=== PATIENT | female | born 1970 | race Caucasian/White ===

== ENCOUNTER 2016-06-13 01:36 | Emergency (ER) | payer MEDICAID ==
[~2016-06-13] VITALS: Ht 162.6 cm; Wt 88.5 kg
[~2016-06-13 01:36] MED LIST: INSU100C SC; INSU100V23 SC
[2016-06-13 01:43] VITALS: Ht 162.6 cm; Wt 88.5 kg
--- NOTE | 2016-06-13 05:08 | RADRPT ---
PROCEDURE: Noncontrast CT Head. CLINICAL INDICATION: Pain. TECHNIQUE: Noncontrast CT of the head was obtained. The administered radiation dose was CTDI vol = 45 mGy, DLP = 720 mGy-cm. COMPARISON: No pertinent prior examinations were submitted for comparison. FINDINGS: There is mild enlargement of the ventricles and cortical sulci. There is no acute intracranial hemo rrhage or extra-axial fluid collection. There is no mass effect. No midline shift is identified. The re is no loss of cobian-white differentiation to suggest acute infarction. The orbits are within normal limits. The paranasal sinuses and mastoid air cells are without fluid. No destructive osseous lesion is identified. IMPRESSION: No acute findings. Mild diffuse parenchymal volume loss. RPTAT: HIKT .Richard Molina MD, MD Date Time Electronically viewed and signed by .Richard Molina MD, on 06/13/2016 05:08 .T/
[2016-06-13] MEDS ORDERED: IBUP-1542 PO (05:13)
[2016-06-13] MEDS ORDERED: SOD CHLORIDE 0.9% 1,000 ML IV STA (05:17)
--- NOTE | 2016-06-13 05:17 | ERD ---
ER Documentation Chief Complaint Date/Time DATE: 06/13/16 TIME: 05:14 Chief Complaint headache, right sided body pain x 3 days. no neuro deficit (AUDREY KEATING PA-C) HPI Patient is a 45-year-old female with a past medical history of diabetes who presents to the emergency department with a headache and right-sided body pain 3 days. Patient states that her headache started 3 days ago pain has been getting gradually worse. Patient states the pain is in the occipital region and radiates down her neck and into her upper back. Patient denies any neck stiffness. Patient denies sudden onset of the pain. She does report feeling nauseous. Patient denies any vomiting or loss of consciousness. Patient also states she has some pulsating pain behind her right eye. Patient states she does have some blurry vision. Patient reports right-sided body pain of her right arm and right leg. Patient denies any chest pain, shortness of breath, left arm pain, diaphoresis. Of note, patient has not been taking her insulin as prescribed due to financial difficulties. (AUDREY KEATING PA-C) ROS All systems reviewed and are negative except as per history of present illness. (AUDREY KEATING PA-C) Medications Home Meds Active Scripts Nitrofurantoin Monohyd Macrocr* (Macrobid*) 100 Mg Capsr, 100 MG PO BID for 5 Days, CAP Prov:AUDREY KEATING PA-C 06/13/16 Ibuprofen* (Motrin*) 600 Mg Tab, 600 MG PO Q6, #15 TAB Prov:AUDREY KEATING PA-C 06/13/16 Reported Medications Insulin Regular, Human* (Novolin R*) 100 U/Ml Vial, 25 UNIT SC QHS, VIAL 07/24/14 Insulin Lispro (Humalog) 100 U/Ml Cartridge, 10 UNITS SC QPM, EA 07/24/14 Insulin Lispro (Humalog) 100 U/Ml Cartridge, 15 UNITS SC NOON, EA 07/24/14 Insulin Lispro (Humalog) 100 U/Ml Cartridge, 10 UNITS SC QAM, EA 07/24/14 Allergies Allergies: Coded Allergies: No Known Allergy (Unverified , 06/13/16) PMhx/Soc History of Surgery: No Anesthesia Reaction: No Hx Neurological Disorder: No Hx Respiratory Disorders: No Hx Cardiac Disorders: No Hx Psychiatric Problems: No Hx Alcohol Use: No Hx Substance Use: No Hx Tobacco Use: No Smoking Status: Never smoker (AUDREY KEATING PA-C) Physical Exam Vitals Vital Signs Date Time Temp Pulse Resp B/P Pulse Ox O2 Delivery O2 Flow Rate FiO2 06/13/16 07:00 82 19 136/73 96 Room Air 06/13/16 06:11 99.0 78 20 139/60 100 Room Air 06/13/16 01:43 98.7 96 20 119/55 99 (ALBARO STEINER PA-C) Physical Exam GENERAL: Well-developed, well-nourished female. Appears in no acute distress. Speaking in full sentences. HEAD: Normocephalic, atraumatic. No deformities or ecchymosis. No scalp hematomas. EYE: Pupils equal, round, and reactive to light. EOMs intact. No conjunctival erythema. No eye discharge. ENT: External ear without any masses or tenderness. Auditory canals clear bilaterally. TM visualized bilaterally, non-erythematous, non-bulging. Nasal mucosa pink with no discharge. Oropharynx is pink without any tonsillar erythema or exudates. No uvula deviation. No kissing tonsils. NECK: Supple. No meningismus. Normal ROM of the neck. LUNG: Clear to auscultation bilaterally. No rhonchi, wheezing, rales or coarse breath sounds. HEART: Regular rate and rhythm. No murmurs, rubs or gallops. BACK: No midline tenderness. EXTREMITIES: Equal pulses bilaterally. No peripheral clubbing, cyanosis or edema. No unilateral leg swelling. NEUROLOGIC: Alert and oriented x3, cooperative. Mood and affect appropriate to situation. Cranial nerves II through XII are grossly intact. Normal speech. Motor exam: 5/5 strength in upper and lower extremities. Sensory exam: Sensation intact to light touch on all four extremities. Cerebellar function exam: Rapid alternating movements intact. No dysmetria on vxxerg-ao-onhd test. Steady gait. No pronator drift. Negative Brudzinski sign. Negative Kernig sign. SKIN: Normal color. Warm and dry. No rashes or lesions. (AUDREY KEATING PA-C) Result Diagram: 06/13/16 0600 06/13/16 0600 Results 24 hrs Laboratory Tests Test 06/13/16 04:21 06/13/16 05:17 06/13/16 06:00 06/13/16 07:16 Bedside Glucose 334mg/dL 243mg/dL Blood Gas Specimen Source Blood venous Arterial Blood Date Drawn 06/13/2016 5:45:36 AM Arterial Blood Gas Puncture Site VENOUS LINE Kyaw Test N/A Venous Blood pH 7.381 Venous Blood pCO2 (Temp Corrected) 36.8mmHG Venous Blood pO2 (Temp Corrected) 56.5mmHG Venous Blood HCO3 21.3mmol/L Venous Blood Oxygen Saturation 88.0mmHG Venous Blood Base Excess -3.2mmol/L Venous Blood Total Hemoglobin 15.5g/dl Venous Blood Oxyhemoglobin 87.7% Venous Blood Methemoglobin 0.3% Carboxyhemoglobin 0% Blood Gas Temperature 37.0C Blood Gas Modality ROOM AIR FiO2 21.0% Blood Gas Notified Whom AA Blood Gas Notified Time 06/13/2016 5:52:37 AM White Blood Count 9.510^3/ul Red Blood Count 4.4510^6/ul Hemoglobin 13.2g/dl Hematocrit 40.2% Mean Corpuscular Volume 90.3fl Mean Corpuscular Hemoglobin 29.7pg Mean Corpuscular Hemoglobin Concent 32.8g/dl Red Cell Distribution Width 13.2% Platelet Count 09069^3/UL Mean Platelet Volume 11.8fl Neutrophils % 51.8% Lymphocytes % 37.0% Monocytes % 7.8% Eosinophils % 2.7% Basophils % 0.4% Nucleated Red Blood Cells % 0.0/100WBC Neutrophils # 4.910^3/ul Lymphocytes # 3.510^3/ul Monocytes # 0.710^3/ul Eosinophils # 0.310^3/ul Basophils # 0.010^3/ul Nucleated Red Blood Cells # 0.010^3/ul Urine Color LT. YELLOW Urine Clarity CLEAR Urine pH 5.5 Urine Specific [place] 1.010 Urine Ketones TRACE Urine Nitrite POSITIVE Urine Bilirubin NEGATIVE Urine Urobilinogen 0.2 E.U./dL Urine Leukocyte Esterase NEGATIVE Urine Microscopic RBC NONE SEEN/HPF Urine Microscopic WBC 2-5/HPF Urine Bacteria MODERATE Urine Hemoglobin NEGATIVE Urine Glucose >=1000% Urine Total Protein NEGATIVE Sodium Level 136mmol/L Potassium Level 3.7mmol/L Chloride Level 101mmol/L Carbon Dioxide Level 22mmol/L Anion Gap 17 Blood Urea Nitrogen 12mg/dl Creatinine 0.44mg/dl Glucose Level 371mg/dl Calcium Level 8.9mg/dl Current Medications Medications (Trade) Dose Ordered Sig/[place] Route PRN Reason Start Time Stop Time Status Last Admin Dose Admin Sodium Chloride 1,000 ml @ 1,000 mls/hr Q1H STAT IV 06/13/16 05:17 06/13/16 06:16 DC 06/13/16 06:00 Sodium Chloride 1,000 ml @ 1,000 mls/hr Q1H ONCE IV 06/13/16 07:00 06/13/16 07:59 DC 06/13/16 06:39 Sodium Chloride (NS) 500 ml @ 500 mls/hr Q1H ONCE IV 06/13/16 07:00 06/13/16 07:59 DC 06/13/16 06:50 (ALBARO STEINER PA-C) Procedures/MDM ED COURSE: The patient was stable throughout ED course. I kept the patient and/or family informed of laboratory and diagnostic imaging results throughout the ED course. DIAGNOSTIC IMAGING: Read by radiologist. DIAGNOSTIC IMAGING REPORT Patient: RENY WARREN : 1970 Age: 45 Sex: F MR #: [id number] DOS: 06/13/16 0423 Ordering MD: AUDREY KEATING PA-C Location: [facility] Room/Bed: PROCEDURE: Noncontrast CT Head. CLINICAL INDICATION: Pain. TECHNIQUE: Noncontrast CT of the head was obtained. The administered radiation dose was CTDI vol = 45 mGy, DLP = 720 mGy-cm. COMPARISON: No pertinent prior examinations were submitted for comparison. FINDINGS: There is mild enlargement of the ventricles and cortical sulci. There is no acute intracranial hemorrhage or extra-axial fluid collection. There is no mass effect. No midline shift is identified. There is no loss of cobian-white differentiation to suggest acute infarction. The orbits are within normal limits. The paranasal sinuses and mastoid air cells are without fluid. No destructive osseous lesion is identified. IMPRESSION: No acute findings. Mild diffuse parenchymal volume loss. RPTAT: HIKT .Richard Jesse, MD, Date Time Electronically viewed and signed by .Richard Molina MD, MD on 06/13/2016 05:08 .T/ CC: AUDREY KEATING PA-C MEDICATIONS GIVEN: IV fluids Patient tolerated medication well with no adverse reactions. Patient reported improvement in pain. MEDICAL DECISION MAKING: This is a 45-year-old female who presents with a headache and right-sided body pain 3 days. Vital signs were reviewed. Patient was afebrile. Patient is not hypoxic. Patient stated that the headache was gradual. Patient denied any fevers , neck stiffness, visual changes or LOC. Full neurological exam was normal. Patient's Accu-Chek blood sugar was noted to be 334. CBC showed no evidence of systemic infection or severe anemia. CMP showed no evidence of electrolyte abnormalities, renal failure, or liver disease. Patient's blood sugar was noted to be 371. Patient bicarb is noted to be 22. Since pH was noted to be 7.38. UA showed no evidence of acute infection or hematuria. Urine was negative for ketones of however +nitrites. She was given 2 L of IV fluids here in the ED. I discussed this case with my supervising physician Dr. Shoemaker who advised me not to give the patient any insulin at this time. She did not show signs of DKA or HHS. CT imaging of the brain was negative for acute findings. At this time, the patient's presentation is most consistent with hyperglycemia, headache, UTI. Low suspicion for intracranial hemorrhage, meningitis, encephalitis, intracranial mass, glaucoma, sinusitis, cluster headache, pyelonephritis, nephrolithiasis. Patient was signed out to Albaro Steiner PA-C, pending IV fluids and repeat blood sugar check. Patient was stable at time of transfer of care. PRESCRIPTIONS: Ibuprofen, Macrobid Patient's random blood sugar level was elevated (>140), but appears stable without evidence of DKA or end organ failure. I had discussion with the patient about the risk of diabetes. I have advised the patient to follow up with his/her primary care physician for outpatient monitoring and treatment for elevated blood sugar levels in 2-3 days. I have instructed the patient to return to the ER for any new or worsening symptoms including chest pain, shortness of breath, headache, confusion, abdominal pain, nausea, vomiting, weakness or LOC. (AUDREY KEATING PA-C) Patient was handed off to me by physician property management assistant Danielle Keating. Have been briefed on the patient's current condition. Went to go examined the patient myself. Patient seems well and brief/gross physical exam is unremarkable. We will go ahead and monitor patient as she is last one half bolus of saline and track blood glucose. Will discharge home when blood glucose level will lowers and if patient continues to be asymptomatic and stable. Patient's blood glucose on recheck was 214. Vital signs are stable. Patient's lungs were clear and heart exam was within normal limits. We will go ahead and discharge the patient and recommend that she see her primary care provider for chronic management of her diabetes mellitus. (ALBARO STEINER PA-C) Departure Diagnosis: Primary Impression: Headache Headache type: unspecified Headache chronicity pattern: unspecified pattern Intractability: not intractable Qualified Code: R51 - Nonintractable headache, unspecified chronicity pattern, unspecified headache type Condition: Stable Patient Instructions: Self-Care for Headaches Referrals: [facility] YOU HAVE RECEIVED A MEDICAL SCREENING EXAM AND THE RESULTS INDICATE THAT YOU DO NOT HAVE A CONDITION THAT REQUIRES URGENT TREATMENT IN THE EMERGENCY DEPARTMENT. FURTHER EVALUATION AND TREATMENT OF YOUR CONDITION CAN WAIT UNTIL YOU ARE SEEN IN YOUR DOCTORS OFFICE WITHIN THE NEXT 1-2 DAYS. IT IS YOUR RESPONSIBILITY TO MAKE AN APPOINTMENT FOR FOLOW-UP CARE. IF YOU HAVE A PRIMARY DOCTOR --you should call your primary doctor and schedule an appointment IF YOU DO NOT HAVE A PRIMARY DOCTOR YOU CAN CALL OUR PHYSICIAN REFERRAL HOTLINE AT IF YOU CAN NOT AFFORD TO SEE A PHYSICIAN YOU CAN CHOSE FROM THE FOLLOWING [facility] CLINICS [facility] [address] [facility] [place]. [facility] [address] [facility] [facility] [address] [facility] [address] [facility]. [facility] [address] [facility]. [facility]. [address] [facility]. [facility] YOU HAVE RECEIVED A MEDICAL SCREENING EXAM AND THE RESULTS INDICATE THAT YOU DO NOT HAVE A CONDITION THAT REQUIRES URGENT TREATMENT IN THE EMERGENCY DEPARTMENT. FURTHER EVALUATION AND TREATMENT OF YOUR CONDITION CAN WAIT UNTIL YOU ARE SEEN IN YOUR DOCTORS OFFICE WITHIN THE NEXT 1-2 DAYS. IT IS YOUR RESPONSIBILITY TO MAKE AN APPOINTMENT FOR FOLOW-UP CARE. IF YOU HAVE A PRIMARY DOCTOR --you should call your primary doctor and schedule and appointment IF YOU DO NOT HAVE A PRIMARY DOCTOR YOU CAN CALL OUR PHYSICIAN REFERRAL HOTLINE AT . IF YOU CAN NOT AFFORD TO SEE A PHYSICIAN YOU CAN CHOSE FROM THE FOLLOWING [facility] INSTITUTIONS: [facility] [address] [place] [address] [facility] [address] [place] [address] [facility] [address] [place] [address] Additional Instructions: Llame al doctor MAANA y juan manuel geo SIL PARA DENTRO DE 1-2 LUGO.Dgale a la secretaria que nosotros le instruimos hacer esta sil.Avise o llame si hinkle condicin se empeora antes de la sil. Regresa aqui si peor o no mejor. AUDREY KEATING PA-C Jun 13, 2016 05:17 ALBARO STEINER PA-C Jun 13, 2016 07:06 [place] [address] Additional Instructions: Llame al doctor MAKULWINDER y juan manuel geo SIL PARA DENTRO DE 1-2 LUGO.Dgale a la secretaria que nosotros le instruimos hacer esta sil.Avise o llame si hinkle condicin se empeora antes de la sil. Regresa aqui si peor o no mejor. AUDREY KEATING PA-C Jun 13, 2016 05:17 ALBARO STEINER PA-C Jun 13, 2016 07:06
[2016-06-13 05:52] LABS: MODE ROOM AIR; MetHgb Venous 0.3 %; Sample Type Blood venous; Venous COHb 0 %; Venous Fraction OxyHgb 87.7 %; Venous Total Hemglobin 15.5 g/dl
[2016-06-13 06:04] LABS: ADD SCAN DIFF NO
[2016-06-13 06:17] LABS: POTASSIUM 3.7 mmol/L (3.5-5.1)
[2016-06-13 06:19] LABS: CREATININE 0.44 mg/dl (0.44-1.00)
[2016-06-13 06:20] LABS: CALCIUM 8.9 mg/dl (8.4-10.2)
[2016-06-13 06:26] LABS: BASOPHILS % 0.4 % (0.0-2.0); EOSINOPHILS # 0.3 10^3/ul (0.0-0.5); EOSINOPHILS % 2.7 % (0.0-7.0); HEMATOCRIT 40.2 % (37.0-47.0); HEMOGLOBIN 13.2 g/dl (12.0-16.0); LYMPHOCYTES # 3.5 10^3/ul (0.8-2.9); MEAN CORPUSCULAR HEMOGLOBIN 29.7 pg (29.0-33.0); MEAN CORPUSCULAR HGB CONC 32.8 g/dl (32.0-37.0); MEAN CORPUSCULAR VOLUME 90.3 fl (82.0-101.0); MEAN PLATELET VOLUME 11.8 fl (7.4-10.4); MONOCYTE # 0.7 10^3/ul (0.3-0.9); MONOCYTES % 7.8 % (0.0-11.0); NEUTROPHIL # 4.9 10^3/ul (1.6-7.5); NEUTROPHILS % 51.8 % (39.0-77.0); PLATELET COUNT 238 10^3/UL (140-415); RED BLOOD COUNT 4.45 10^6/ul (4.20-5.40); RED CELL DISTRIBUTION WIDTH 13.2 % (11.5-14.5); WHITE BLOOD COUNT 9.5 10^3/ul (4.8-10.8)
[2016-06-13 06:46] LABS: ADD UMIC YES; URINE BILIRUBIN (Dip) NEGATIVE (NEGATIVE); URINE BLOOD (Dip) NEGATIVE (NEGATIVE); URINE COLOR LT. YELLOW (YELLOW); URINE GLUCOSE (Dip) >=1000 % (NEGATIVE); URINE KETONES (Dip) TRACE (NEGATIVE); URINE LEUKOCYTE ESTERASE (Dip) NEGATIVE (NEGATIVE); URINE NITRITE (Dip) POSITIVE (NEGATIVE); URINE TOTAL PROTEIN (Dip) NEGATIVE (NEGATIVE); URINE UROBILINOGEN (Dip) 0.2 E.U./dL (0.1-1.0)
[2016-06-13] MEDS ORDERED: SOD CHLORIDE 0.9% 500 ML IV ONE (07:00)
[2016-06-13] MEDS ORDERED: SOD CHLORIDE 0.9% 1,000 ML IV ONE (07:00)
[2016-06-13] MEDS ORDERED: NITR-58 PO (07:09)
[2016-06-13 07:10] LABS: BACTERIA,URINE MODERATE; URINE RBCS NONE SEEN /HPF (0)
[2016-06-13 09:30] VITALS: BP 118/70; PULSE 78; RESP 20; TEMP 98.4
== END 2016-06-13 09:45 | disposition home or self-care (01) ==
LOC: FTE 01:36
DX: R51 Headache (principal); E11.9 Type 2 diabetes mellitus without complications; Z79.4 Long term (current) use of insulin
CPT/HCPCS: 36415; 70450; 80048; 81001; 81003; 82803; 82962; 85025; 96360; 96361; J7030; J7040; Z7502; Z7610

== ENCOUNTER 2016-08-29 12:02 | Emergency (ER) | payer MEDICAID ==
[~2016-08-29] VITALS: Ht 157.5 cm; Wt 78.0 kg
[~2016-08-29 12:02] MED LIST changes: +IBUP-1542 PO; +NITR-58 PO
[2016-08-29 12:04] VITALS: Ht 157.5 cm; Wt 78.0 kg
[2016-08-29] MEDS ORDERED: ONDANSETRON 4 MG INJ IV STA (12:35)
--- NOTE | 2016-08-29 13:28 | RADRPT ---
PROCEDURE: US Abdomen (right upper quadrant). CLINICAL INDICATION: Right upper quadrant abdomen pain. TECHNIQUE: Multiple real-time longitudinal and transverse images of the right upper quadrant of th e abdomen were acquired utilizing a curved array transducer. Images were reviewed on a high-resoluti on PACS workstation. COMPARISON: CT scan of the abdomen and pelvis dated 07/24/2014 which demonstrated fatty liver. FINDINGS: The liver is enlarged and diffusely increased in echogenicity. There is no focal hepatic lesion. Color Doppler and pulsed Doppler sonography demonstrate normal an tegrade flow in the portal vein. The gallbladder is normal with no stones or wall thickening. There is no pericholecystic fluid darell ection. The bile ducts are normal with the common bile duct measuring 3.6 mm in diameter. The pancreas is not well visualized due to overlying bowel gas. No free fluid is present. The right kidney measures 10.6 x 5.4 x 6.3 cm. There is normal echogenicity of the right kidney. There is no perinephric fluid collection. No hydronephrosis, mass, or calculus is seen. IMPRESSION: 1. Hepatomegaly. 2. Fatty metamorphosis of the liver. 3. Pancreas not well visualized. 4. Otherwise normal right upper quadrant abdomen ultrasound. RPTAT: QQ .Jarrett Nolasco MD, MD Date Time Electronically viewed and signed by .Jarrett Nolasco MD, on 08/29/2016 13:28 .R/
[2016-08-29 13:54] LABS: ADD SCAN DIFF NO
[2016-08-29 14:05] LABS: BASOPHILS % 0.6 % (0.0-2.0); EOSINOPHILS # 0.1 10^3/ul (0.0-0.5); EOSINOPHILS % 0.8 % (0.0-7.0); HEMATOCRIT 36.8 % (37.0-47.0); HEMOGLOBIN 12.3 g/dl (12.0-16.0); LYMPHOCYTES # 1.2 10^3/ul (0.8-2.9); LYMPHOCYTES % 18.5 % (15.0-51.0); MEAN CORPUSCULAR HEMOGLOBIN 29.6 pg (29.0-33.0); MEAN CORPUSCULAR HGB CONC 33.4 g/dl (32.0-37.0); MEAN CORPUSCULAR VOLUME 88.7 fl (82.0-101.0); MEAN PLATELET VOLUME 11.6 fl (7.4-10.4); MONOCYTE # 0.5 10^3/ul (0.3-0.9); MONOCYTES % 8.1 % (0.0-11.0); NEUTROPHIL # 4.8 10^3/ul (1.6-7.5); NEUTROPHILS % 71.5 % (39.0-77.0); PLATELET COUNT 208 10^3/UL (140-415); RED BLOOD COUNT 4.15 10^6/ul (4.20-5.40); RED CELL DISTRIBUTION WIDTH 12.7 % (11.5-14.5); WHITE BLOOD COUNT 6.7 10^3/ul (4.8-10.8)
--- NOTE | 2016-08-29 14:05 | RADRPT ---
PROCEDURE: CT Brain without contrast. CLINICAL INDICATION: Pain, headache TECHNIQUE: Routine CT scan of the brain was performed on a high resolution multi detector scanner without intravenous contrast. One or more of the following dose reduction techniques were used: Auto mated exposure control; Adjustment of the mA and/or kV according to patient size; Use of iterative r econstruction technique. CTDI = 42 mGy. DLP = 630 mGy-cm. COMPARISON: CT brain 06/13/2016 FINDINGS: Hemorrhage: No evidence of intracranial hemorrhage. Acute ischemic changes: No evidence of acute ischemic changes. Mass effect/Midline shift: None. Parenchymal volume: Within normal limits for age. Ventricular system: Concordant with parenchymal volume. Chronic changes: Parenchymal attenuation is within normal limits. Atherosclerotic calcifications of the cavernous portions of both internal carotid arteries are present. Extracranial soft tissues: Unremarkable. Calvarium: No fractures. Paranasal sinuses: Visualized paranasal sinuses are clear. Mastoid air cells: Visualized mastoid air cells are clear. IMPRESSION: No acute intracranial abnormalities. Normal appearance of the brain parenchyma. RPTAT: AADD .Jaime Bruner MD, MD Date Time Electronically viewed and signed by .Jaime Bruner MD, on 08/29/2016 14:05 .B/
[2016-08-29 14:10] LABS: ADD UMIC YES; UR ASCORBIC ACID NEGATIVE (NEGATIVE); UR BACTERIA FEW /HPF (NONE SEEN); UR BILIRUBIN (Dip) NEGATIVE (NEGATIVE); UR BLOOD (Dip) 1+ mg/dL (NEGATIVE); UR CLARITY CLEAR (CLEAR); UR COLOR STRAW (YELLOW); UR GLUCOSE (Dip) 3+ mg/dL (NEGATIVE); UR KETONES (Dip) TRACE mg/dL (NEGATIVE); UR LEUKOCYTE ESTERASE (Dip) TRACE Leu/ul (NEGATIVE); UR NITRITE (Dip) NEGATIVE (NEGATIVE); UR RBC 1 /HPF (0-5); UR SPECIFIC GRAVITY (Dip) 1.032 (1.003-1.030); UR TOTAL PROTEIN (Dip) NEGATIVE (NEGATIVE); UR UROBILINOGEN (Dip) NEGATIVE (NEGATIVE)
--- NOTE | 2016-08-29 14:10 | ERD ---
ER Documentation Chief Complaint Date/Time DATE: 08/29/16 TIME: 14:07 Chief Complaint ap, naUSEA TODAY HPI This 46-year-old female who presents emergency department today complaining of some burning and palpitations in her chest, feeling "shaky", nausea and some abdominal pain for the past couple days but worse today. States she also has a headache. States she has a bump on her head that she got from boxing. States that she has diabetes and takes insulin that she "gets for free". denies any fevers or chills. ROS All systems reviewed and are negative except as per history of present illness. Medications Home Meds Active Scripts Insulin Detemir (Levemir) 100 Unit/1 Ml Vial, 15 UNIT SC QPM, #1 VIAL Prov:RIKKI RIVAS PA-C 08/29/16 Insulin Lispro (Humalog) 100 Unit/1 Ml Cartridge, 10 UNIT SQ QAM, #1 Prov:RIKKI RIVAS PA-C 08/29/16 Tramadol HCl (Tramadol HCl) 50 Mg Tablet, 50 MG PO Q4 Y for PAIN, #20 TAB Prov:RIKKI RIVAS PA-C 08/29/16 Ondansetron Hcl* (Zofran*) 4 Mg Tablet, 4 MG PO Q6H for NAUSEA AND/OR VOMITING, #30 TAB Prov:RIKKI RIVAS PA-C 08/29/16 Nitrofurantoin Monohyd Macrocr* (Macrobid*) 100 Mg Capsr, 100 MG PO BID for 5 Days, CAP Prov:AUDREY CABRERA PA-C 06/13/16 Ibuprofen* (Motrin*) 600 Mg Tab, 600 MG PO Q6, #15 TAB Prov:AUDREY CABRERA PA-C 06/13/16 Reported Medications Insulin Regular, Human* (Novolin R*) 100 U/Ml Vial, 25 UNIT SC QHS, VIAL 07/24/14 Insulin Lispro (Humalog) 100 U/Ml Cartridge, 10 UNITS SC QPM, EA 07/24/14 Insulin Lispro (Humalog) 100 U/Ml Cartridge, 15 UNITS SC NOON, EA 07/24/14 Insulin Lispro (Humalog) 100 U/Ml Cartridge, 10 UNITS SC QAM, EA 07/24/14 Allergies Allergies: Coded Allergies: No Known Allergy (Unverified , 08/29/16) PMhx/Soc Medical and Surgical Hx: pt denies Surgical Hx History of Surgery: No Anesthesia Reaction: No Hx Neurological Disorder: No Hx Respiratory Disorders: No Hx Cardiac Disorders: No Hx Psychiatric Problems: No Hx Alcohol Use: No Hx Substance Use: No Hx Tobacco Use: No Smoking Status: Never smoker Physical Exam Vitals Vital Signs Date Time Temp Pulse Resp B/P Pulse Ox O2 Delivery O2 Flow Rate FiO2 08/29/16 16:42 98.3 77 20 113/57 98 Room Air 08/29/16 12:04 98.1 99 18 143/78 99 Physical Exam Const: No acute distress Head: Bruising over right side of facial bones. Eyes: Normal Conjunctiva. PERRLA. EOM intact ENT: Normal External Ears, Nose and Mouth. Neck: Full range of motion..~ No meningismus. Resp: Clear to auscultation bilaterally Cardio: Regular rate and rhythm, no murmurs Abd: Soft, epigastric, right upper quadrant tender, non distended. Normal bowel sounds. No right lower quadrant pain. No left lower quadrant pain. Skin: No petechiae or rashes Back: No midline or flank tenderness Ext: No cyanosis, or edema Neur: Awake and alert. Cranial nerves II through XII intact. No gait ataxia. Psych: Normal Mood and Affect Result Diagram: 08/29/16 1315 08/29/16 1315 Results 24 hrs Laboratory Tests Test 08/29/16 13:00 08/29/16 13:15 08/29/16 15:30 08/29/16 17:02 Urine Color STRAW Urine Clarity CLEAR Urine pH 7.0 Urine Specific [place] 1.032 Urine Ketones TRACEmg/dL Urine Nitrite NEGATIVEmg/dL Urine Bilirubin NEGATIVEmg/dL Urine Urobilinogen NEGATIVEmg/dL Urine Leukocyte Esterase TRACELeu/ul Urine Microscopic RBC 1/HPF Urine Microscopic WBC 5/HPF Urine Bacteria FEW/HPF Urine Hemoglobin 1+mg/dL Urine Glucose 3+mg/dL Urine Total Protein NEGATIVEmg/dl White Blood Count 6.710^3/ul Red Blood Count 4.1510^6/ul Hemoglobin 12.3g/dl Hematocrit 36.8% Mean Corpuscular Volume 88.7fl Mean Corpuscular Hemoglobin 29.6pg Mean Corpuscular Hemoglobin Concent 33.4g/dl Red Cell Distribution Width 12.7% Platelet Count 72743^3/UL Mean Platelet Volume 11.6fl Neutrophils % 71.5% Lymphocytes % 18.5% Monocytes % 8.1% Eosinophils % 0.8% Basophils % 0.6% Nucleated Red Blood Cells % 0.0/100WBC Neutrophils # 4.810^3/ul Lymphocytes # 1.210^3/ul Monocytes # 0.510^3/ul Eosinophils # 0.110^3/ul Basophils # 0.010^3/ul Nucleated Red Blood Cells # 0.010^3/ul Sodium Level 130mmol/L Potassium Level 3.6mmol/L Chloride Level 94mmol/L Carbon Dioxide Level 23mmol/L Anion Gap 17 Blood Urea Nitrogen 5mg/dl Creatinine 0.43mg/dl Glucose Level 418mg/dl Calcium Level 8.5mg/dl Total Bilirubin 0.2mg/dl Direct Bilirubin 0.00mg/dl Indirect Bilirubin 0.2mg/dl Aspartate Amino Transf (AST/SGOT) 27IU/L Alanine Aminotransferase (ALT/SGPT) 37IU/L Alkaline Phosphatase 125IU/L Total Protein 7.3g/dl Albumin 4.0g/dl Globulin 3.30g/dl Albumin/Globulin Ratio 1.21 Lipase 167U/L Bedside Glucose 270mg/dL 234mg/dL Current Medications Medications (Trade) Dose Ordered Sig/[place] Route PRN Reason Start Time Stop Time Status Last Admin Dose Admin Ondansetron HCl 4 mg 4 mg ONCE STAT IV 08/29/16 12:35 08/29/16 12:40 DC 08/29/16 13:30 Sodium Chloride (NS) 1,000 ml @ 1,000 mls/hr Q1H ONCE IV 08/29/16 15:30 08/29/16 16:29 DC 08/29/16 15:24 Insulin Human Lispro (Humalog) 8 unit ONCE STAT SC 08/29/16 15:19 08/29/16 15:20 DC 08/29/16 15:32 Ketorolac Tromethamine (Toradol) 30 mg ONCE STAT IV 08/29/16 15:39 08/29/16 15:40 DC 08/29/16 15:47 DIAGNOSTIC IMAGING REPORT Patient: RENY WARREN : 1970 Age: 46 Sex: F MR #: [id number] DOS: 08/29/16 1235 Ordering MD: RIKKI RIVAS PA-C Location: [facility] Room/Bed: PROCEDURE: US Abdomen (right upper quadrant). CLINICAL INDICATION: Right upper quadrant abdomen pain. TECHNIQUE: Multiple real-time longitudinal and transverse images of the right upper quadrant of the abdomen were acquired utilizing a curved array transducer. Images were reviewed on a high-resolution PACS workstation. COMPARISON: CT scan of the abdomen and pelvis dated 07/24/2014 which demonstrated fatty liver. FINDINGS: The liver is enlarged and diffusely increased in echogenicity. There is no focal hepatic lesion. Color Doppler and pulsed Doppler sonography demonstrate normal antegrade flow in the portal vein. The gallbladder is normal with no stones or wall thickening. There is no pericholecystic fluid collection. The bile ducts are normal with the common bile duct measuring 3.6 mm in diameter. The pancreas is not well visualized due to overlying bowel gas. No free fluid is present. The right kidney measures 10.6 x 5.4 x 6.3 cm. There is normal echogenicity of the right kidney. There is no perinephric fluid collection. No hydronephrosis, mass, or calculus is seen. IMPRESSION: 1. Hepatomegaly. 2. Fatty metamorphosis of the liver. 3. Pancreas not well visualized. 4. Otherwise normal right upper quadrant abdomen ultrasound. RPTAT: QQ .Jarrett Nolasco MD, MD Date Time Electronically viewed and signed by .Jarrett Nolasco MD, MD on 08/29/2016 13:28 .R/ CC: RIKKI RIVAS PA-C DIAGNOSTIC IMAGING REPORT Patient: RENY WARREN : 1970 Age: 46 Sex: F MR #: [id number] DOS: 08/29/16 0000 Ordering MD: RIKKI RIVAS PA-C Location: [facility] Room/Bed: PROCEDURE: CT Brain without contrast. CLINICAL INDICATION: Pain, headache TECHNIQUE: Routine CT scan of the brain was performed on a high resolution multi detector scanner without intravenous contrast. One or more of the following dose reduction techniques were used: Automated exposure control; Adjustment of the mA and/or kV according to patient size; Use of iterative reconstruction technique. CTDI = 42 mGy. DLP = 630 mGy-cm. COMPARISON: CT brain 06/13/2016 FINDINGS: Hemorrhage: No evidence of intracranial hemorrhage. Acute ischemic changes: No evidence of acute ischemic changes. Mass effect/Midline shift: None. Parenchymal volume: Within normal limits for age. Ventricular system: Concordant with parenchymal volume. Chronic changes: Parenchymal attenuation is within normal limits. Atherosclerotic calcifications of the cavernous portions of both internal carotid arteries are present. Extracranial soft tissues: Unremarkable. Calvarium: No fractures. Paranasal sinuses: Visualized paranasal sinuses are clear. Mastoid air cells: Visualized mastoid air cells are clear. IMPRESSION: No acute intracranial abnormalities. Normal appearance of the brain parenchyma. RPTAT: AADD .Jaime Bruner MD, MD Date Time Electronically viewed and signed by .Jaime Bruner MD, on 08/29/2016 14:05 .B/ CC: RIKKI RIVAS PA-C DIAGNOSTIC IMAGING REPORT Patient: RENY WARREN : 1970 Age: 46 Sex: F MR #: [id number] DOS: 08/29/16 0000 Ordering MD: RIKKI RIVAS PA-C Location: [facility] Room/Bed: PROCEDURE: CT scan facial bones without contrast. CLINICAL INDICATION: Facial pain TECHNIQUE: Routine CT scan of the maxillofacial structures was performed on a high resolution multidetector scanner without intravenous contrast. One or more of the following dose reduction techniques were used: Automated exposure control ; Adjustment of the mA and/or kV according to patient size; Use of iterative reconstruction technique. CTDI = 29 mGy. DLP = 572 mGy-cm. COMPARISON: CT brain 06/13/2016 FINDINGS: Extracranial soft tissues: Mild subcutaneous soft tissue swelling overlying both zygomatic arches, left greater than right. No focal hematoma. Orbits: Chronic fracture deformity of the left lamina papyracea is unchanged from 06/13/2016. No acute fractures are seen. Sinuses: Clear. Erosion of the ventral portion of the nasal septum is present. Skull base: No fractures. Maxilla/Mandible: No erosive changes or fractures. Suprahyoid neck: Within normal limits. Lymph nodes: No evidence of abnormal morphology or attenuation by CT criteria. Cervical spine: Partially visualized structures appear normal. IMPRESSION: Mild extracranial soft tissue swelling. Chronic fracture of the left lamina papyracea is unchanged. Medial rectus muscle does not enter the defect. Erosion of the anterior portion of the nasal septum. RPTAT: AADD .Jaime Bruner MD, MD Date Time Electronically viewed and signed by .Jaime Bruner MD, MD on 08/29/2016 14:15 .B/ CC: RIKKI RIVAS PA-C Procedures/[facility] This a 46-year-old female who presents to the emergency department today with multiple complaints. Patient had indicated that she took [place] and upon further questioning I asked what she had taken it for and she indicated that it was for her headache. She indicated that she does boxing. Patient has a bruise on the right side of her face and upon further questioning about why she did boxing she indicated that she and her are homeless and she lives in her car and she does boxing for self defense. Patient indicated that she is a diabetic and takes insulin. Given patient's physical exam and complaints I did obtain laboratory work as well as imaging. Laboratory work shows no elevated white blood cell count. She is not anemic. Platelets are within normal limits. Sodium was decreased. Bicarb is within normal limits. Glucose was elevated at 418. She is not in DKA. UA showed trace leukocyte esterase and trace ketones. Right upper quadrant ultrasound shows hepatomegaly, fatty liver, pancreas is not well visualized. Otherwise normal right upper quadrant ultrasound. The gallbladder is normal with no stones or wall thickening. There is no pericholecystic fluid collection Head CT noncontrast shows no acute intercranial abnormalities. There is normal appearance of brain parenchyma. There is no evidence of acute ischemic changes. There is no midline shift or mass-effect. Facial bone CT shows mild extracranial soft tissue swelling. There is a chronic fracture of the left lamina that is unchanged. Medial rectus muscle does not enter the defect. There is erosion of the anterior portion of the nasal septum. EKG read and interpreted by Dr. Chung. Rate [address] elevation. No QT prolongation. Normal sinus rhythm. Low suspicion for acute AL, PE, pericarditis. Patient was given IV fluids and 8 units of subcutaneous insulin in addition to Zofran and Toradol. Patient's glucose improved to 270 and again to 234. I do not feel that she requires admission at this time. She has no evidence of DKA. I also requested a social work consult and patient discussed a plan for them. Patient presented to the emergency department today with multiple complaints. Symptoms at this time most consistent with acute head injury and abdominal pain and nausea likely secondary to hyperglycemia. Patient was discharged home in stable condition with Zofran, tramadol, Humalog and Levemir. She was instructed to stop boxing. At this time the patient is stable for discharge and outpatient management. Patient should follow up with their PCP in the next 1-2 days. I have given the patient a list of resources. They may return to the emergency department sooner for any persistent or worsening of symptoms. Patient understood and agreed with the plan. Discussed the patient with Dr. Chung and he is in agreement with the plan. Departure Diagnosis: Primary Impression: Hyperglycemia Additional Impression: Headache Headache type: unspecified Headache chronicity pattern: unspecified pattern Intractability: not intractable Qualified Code: R51 - Nonintractable headache, unspecified chronicity pattern, unspecified headache type Condition: RIKKI Schmidt PA-C Aug 29, 2016 14:09
--- NOTE | 2016-08-29 14:15 | RADRPT ---
PROCEDURE: CT scan facial bones without contrast. CLINICAL INDICATION: Facial pain TECHNIQUE: Routine CT scan of the maxillofacial structures was performed on a high resolution [facility] id[facility] scanner without intravenous contrast. One or more of the following dose reduction techniqu es were used: Automated exposure control; Adjustment of the mA and/or kV according to patient size; Use of iterative reconstruction technique. CTDI = 29 mGy. DLP = 572 mGy-cm. COMPARISON: CT brain 06/13/2016 FINDINGS: Extracranial soft tissues: Mild subcutaneous soft tissue swelling overlying both zygomatic arches, l eft greater than right. No focal hematoma. Orbits: Chronic fracture deformity of the left lamina papyracea is unchanged from 06/13/2016. No ac cachil dehe fractures are seen. Sinuses: Clear. Erosion of the ventral portion of the nasal septum is present. Skull base: No fractures. Maxilla/Mandible: No erosive changes or fractures. Suprahyoid neck: Within normal limits. Lymph nodes: No evidence of abnormal morphology or attenuation by CT criteria. Cervical spine: Partially visualized structures appear normal. IMPRESSION: Mild extracranial soft tissue swelling. Chronic fracture of the left lamina papyracea is unchanged. Medial rectus muscle does not enter the defect. Erosion of the anterior portion of the nasal septum. RPTAT: AADD .Jaime Bruner MD, Date Time Electronically viewed and signed by .Jaime Bruner MD, on 08/29/2016 14:15 .B/
[2016-08-29 14:19] LABS: ALBUMIN/GLOBULIN RATIO 1.21; BILIRUBIN,INDIRECT 0.2 mg/dl (0-1.1); BILIRUBIN,TOTAL 0.2 mg/dl (0.2-1.3); CALCIUM 8.5 mg/dl (8.4-10.2); CREATININE 0.43 mg/dl (0.44-1.00); POTASSIUM 3.6 mmol/L (3.5-5.1); TOTAL PROTEIN 7.3 g/dl (6.1-8.1)
[2016-08-29] MEDS ORDERED: INSULIN LISPRO 100 UNIT/ML VIAL SC STA (15:19)
[2016-08-29] MEDS ORDERED: SOD CHLORIDE 0.9% 1,000 ML IV ONE (15:30)
[2016-08-29] MEDS ORDERED: KETOROLAC 30 MG INJ IV STA (15:39)
[2016-08-29] MEDS ORDERED: ONDA4TAB8 PO (17:13)
[2016-08-29] MEDS ORDERED: TRAM50TA2 PO (17:14)
[2016-08-29] MEDS ORDERED: INSU100C SQ (17:17)
[2016-08-29] MEDS ORDERED: LEVEM SC (17:17)
[2016-08-29 17:49] VITALS: BP 106/58; PULSE 83; RESP 18; TEMP 98.6
== END 2016-08-29 17:52 | disposition home or self-care (01) ==
LOC: FTE 12:02
DX: E11.65 Type 2 diabetes mellitus with hyperglycemia (principal); R51 Headache; R11.0 Nausea; R00.2 Palpitations; Z79.4 Long term (current) use of insulin
CPT/HCPCS: 36415; 70450; 70486; 76705; 80053; 81001; 82962; 83690; 85025; 93005; 96372; 96374; 96375; J1815; J1885; J2405; J7030; Z7502

== ENCOUNTER 2017-01-14 13:45 | Emergency (ER) | END 2017-01-14 17:44 | disposition home or self-care (01) | DX: R30.0 Dysuria (principal); E11.9 Type 2 diabetes mellitus without complications; Z79.4 Long term (current) use of insulin | CPT/HCPCS: 36415; 71010; 80053; 81001; 82962; 83690; 85025; 96372; J1815; J7030; Z7502 ==

== ENCOUNTER 2017-09-12 14:36 | Emergency (ER) | END 2017-09-12 17:33 | disposition home or self-care (01) ==

== ENCOUNTER 2017-12-14 12:54 | Emergency (ER) | END 2017-12-14 18:43 | disposition home or self-care (01) ==

== ENCOUNTER 2018-01-06 20:56 | Emergency (ER) | END 2018-01-07 03:04 | disposition home or self-care (01) ==

== ENCOUNTER 2018-07-01 18:31 | Emergency (ER) | payer MEDICAID ==
[~2018-07-01] VITALS: Ht 160 cm; Wt 75.8 kg
[~2018-07-01 18:31] MED LIST changes: -IBUP-1542 PO; -INSU100C SC; +INSU100C SQ; -INSU100V23 SC; +LANT3I SC; +MECL12.574 PO; +METF100010 PO; -NITR-58 PO; +PANT40TA3 PO
[2018-07-01 18:46] VITALS: Ht 160 cm; Wt 75.8 kg
[2018-07-01] MEDS ORDERED: KETOROLAC 15 MG INJ IV STA (22:12)
[2018-07-01] MEDS ORDERED: IBUP-1542 PO (22:12)
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
[2018-07-01] MEDS ORDERED: ACETAMINOPHEN 325 MG TAB PO ONE (22:30)
[2018-07-01 23:27] VITALS: BP 113/70; PULSE 86; RESP 16
== END 2018-07-01 23:33 | disposition home or self-care (01) ==
LOC: E/R 18:31 → MERGE 18:31 → E/R 23:33
DX: S39.92XA Unspecified injury of lower back, initial encounter (principal); S19.9XXA Unspecified injury of neck, initial encounter; E11.9 Type 2 diabetes mellitus without complications; M79.18 Myalgia, other site; V87.7XXA Person injured in collision between other specified motor vehicles (traffic), initial encounter
CPT/HCPCS: 71045; 81025; 96374; J1885; Z7502; Z7610